=== PATIENT | male | born 1940 | race Caucasian/White ===

== ENCOUNTER 2017-04-02 12:19 | Emergency (ER) | payer MEDICARE ==
--- NOTE | 2017-04-02 12:52 | ED Physician Documentation ---
PD HPI CHEST PAIN - Stated complaint Stated Complaint: IRREGULAR HB - Chief complaint Chief Complaint: Cardiac - History obtained from History obtained from: Patient - History of Present Illness Timing - onset: Today Timing - onset during: Sleep Timing - duration: Hours (5) Pain level max: 2 Pain level now: 2 Quality: Pressure, Tightness, Other (L upper chest) Location: Left chest Radiation: Other (non-radiating) Improved by: Nothing Worsened by: Other (nothing) Associated symptoms: Shortness of air, Feeling faint / dizzy, Palpitations. No : Vomiting, General Weakness Similar symptoms before: Diagnosis (atrial fibrillation) Recently seen: Not recently seen - Additional information Additional information: states had similar episode 2 years ago, seen by cardiology in the past. Review of Systems Ten Systems: 10 systems reviewed and negative Constitutional: denies: Fever, Chills Ears: denies: Ear pain Nose: denies: Rhinorrhea / runny nose, Congestion Respiratory: denies: Cough GI: denies: Abdominal Pain, Nausea, Vomiting, Diarrhea Skin: denies: Rash Musculoskeletal: denies: Neck pain, Back pain Neurologic: reports: Generalized weakness. denies: Focal weakness, Numbness, Headache PD PAST MEDICAL HISTORY - Past Medical History Past Medical History: Yes Cardiovascular: Atrial fibrillation - Present Medications Home Medications: Ambulatory Orders Medication Instructions Recorded Confirmed Aspirin 04/02/17 - Allergies Allergies/Adverse Reactions: Allergies Allergy/AdvReac Type Severity Reaction Status Date / Time Unable to Assess Allergy Verified 04/02/17 12:29 - Social History Does the pt smoke?: No Smoking Status: Never smoker Does the pt drink ETOH?: Yes - Immunizations Immunizations are current?: Yes PD ED PE NORMAL - Vitals Vital signs reviewed: Yes - General General: Alert and oriented X 3, No acute distress - HEENT HEENT: PERRL, Moist mucous membranes - Neck Neck: Supple, no meningeal sign, No JVD, No bruit - Cardiac Cardiac: RRR, Strong equal pulses - Respiratory Respiratory: No respiratory distress, Clear bilaterally - Abdomen Abdomen: Soft, Non tender - Derm Derm: Warm and dry, No rash - Extremities Extremities: No calf tenderness / cord - Neuro Neuro: Alert and oriented X 3 - Psych Psych: Normal mood, Normal affect Results - Vitals Vitals: Vital Signs - 24 hr 06/23/17 06/23/17 06/23/17 12:19 12:35 12:45 Temperature 36.1 C L Heart Rate 85 53 L 50 L Respiratory 16 Rate Blood Pressure 130/87 H 123/76 114/78 Blood Pressure [Right] O2 Saturation 98 04/02/17 04/02/17 04/02/17 13:14 13:18 14:00 Temperature Heart Rate 50 L 48 L Respiratory 16 16 Rate Blood Pressure 110/71 107/64 Blood Pressure 107/72 [Right] O2 Saturation 100 100 04/02/17 15:07 Temperature Heart Rate 47 L Respiratory 16 Rate Blood Pressure 103/65 Blood Pressure [Right] O2 Saturation 98 Oxygen O2 Source Room air - EKG (time done) 1232 Rate: Rate (enter#) (104) Rhythm: Atrial fibrillation Vale: Normal QRS: Normal Ischemia: Non specific changes Compare to prior EKG: Old EKG unavailable 1257 Rate: Rate (enter#) (54) Rhythm: Sinus bradycardia Vale: Normal Intervals: Normal SC QRS: Normal Ischemia: Non specific changes Computer interpretation: Agree with computer - Labs Labs: Laboratory Tests 04/02/17 04/02/17 04/02/17 12:35 12:35 12:35 WBC 5.8 RBC 4.96 Hgb 15.5 Hct 44.4 MCV 89.7 MCH 31.2 H MCHC 34.8 RDW 13.3 Plt Count 161 MPV 9.1 Neut # 3.6 Lymph # 1.3 L [place] # 0.6 Eos # 0.2 Baso # 0.1 Absolute Nucleated RBC 0.00 Nucleated RBCs 0.1 Sodium 140 Potassium 4.0 Chloride 103 Carbon Dioxide 29 Anion Gap 8.0 BUN 15 Creatinine 0.9 Estimated GFR (MDRD) 82 L Glucose 101 H Calcium 9.9 Total Bilirubin 0.9 AST 26 ALT 23 Alkaline Phosphatase 63 Troponin I 0.04 Total Protein 7.6 Albumin 4.2 Globulin 3.4 Albumin/Globulin Ratio 1.2 Lipase 27 04/02/17 14:37 WBC RBC Hgb Hct MCV MCH MCHC RDW Plt Count MPV Neut # Lymph # [place] # Eos # Baso # Absolute Nucleated RBC Nucleated RBCs Sodium Potassium Chloride Carbon Dioxide Anion Gap BUN Creatinine Estimated GFR (MDRD) Glucose Calcium Total Bilirubin AST ALT Alkaline Phosphatase Troponin I 0.04 Total Protein Albumin Globulin Albumin/Globulin Ratio Lipase - Rads (name of study) cxr Radiology: Prelim report reviewed, EMP read contemporaneously, See rad report ( No acute cardiopulmonary process. ) PD MEDICAL DECISION MAKING - ED course Complexity details: reviewed results, re-evaluated patient, considered differential, d/w patient, d/w family ED course: Patient is a 77-year-old male with paroxysmal atrial fibrillation. Spontaneously converted in the emergency department. Negative troponin 2. No acute findings on chest x-ray. Patient is well-appearing, nontoxic. Afebrile. No evidence of myocardial infarction. He feels normal now. We will have him follow-up with his doctor for further evaluation and care. Patient counseled regarding signs and symptoms for which I believe and urgent re-evaluation would be necessary. Patient with good understanding of and agreement to plan and is comfortable going home at this time This document was made in part using voice recognition software. While efforts are made to proofread this document, sound alike and grammatical errors may occur. Departure - Departure Disposition: 01 Home, Self Care Clinical Impression: Atrial fibrillation Qualifiers: Atrial fibrillation type: paroxysmal Qualified Code(s): I48.0 - Paroxysmal atrial fibrillation Condition: Good Instructions: ED Afib Follow-Up: Provider,Other [Primary Care Provider] - Within 1 week Comments: Return if you worsen. Your laboratory tests are normal today. Discharge Date/Time: 04/02/17 15:13
[2017-04-02 12:53] LABS: BASOPHILS # (AUTO) 0.1 10^3/uL (0.0-0.1); EOSINOPHILS # (AUTO) 0.2 10^3/uL (0.0-0.7); EOSINOPHILS % (AUTO) 3.3 %; HCT - HEMATOCRIT 44.4 % (42.0-52.0); HGB - HEMOGLOBIN 15.5 g/dL (14.0-18.0); LYMPHOCYTES # (AUTO) 1.3 10^3/uL (1.5-3.5); LYMPHOCYTES % (AUTO) 22.5 %; MEAN CORPUSCULAR HEMOGLOBIN 31.2 pg (27.0-31.0); MEAN CORPUSCULAR HGB CONC 34.8 g/dL (32.0-36.0); MEAN CORPUSCULAR VOLUME 89.7 fL (80.0-94.0); MEAN PLATELET VOLUME 9.1 fL (7.4-11.4); MONOCYTES # (AUTO) 0.6 10^3/uL (0.0-1.0); MONOCYTES % (AUTO) 10.9 %; NEUTROPHILS # (AUTO) 3.6 10^3/uL (1.5-6.6); NEUTROPHILS % (AUTO) 62.3 %; NUCLEATED RED BLOOD CELLS AUTO 0.1 /100WBC; RED BLOOD COUNT 4.96 10^6/uL (4.70-6.10); RED CELL DISTRIBUTION WIDTH 13.3 % (12.0-15.0); UNCORRECTED WHITE BLOOD COUNT 5.8 x10^3/uL; WHITE BLOOD COUNT 5.8 x10^3/uL (4.8-10.8)
[2017-04-02 13:06] LABS: ALBUMIN/GLOBULIN RATIO 1.2 (1.0-2.2); BILIRUBIN,TOTAL 0.9 mg/dL (0.2-1.0); CALCIUM 9.9 mg/dL (8.5-10.3); CREATININE 0.9 mg/dL (0.6-1.2); TOTAL PROTEIN 7.6 g/dL (6.7-8.2)
--- NOTE | 2017-04-02 13:58 | XRAY Preliminary Report ---
Exam: XR Chest 1 View IMPRESSION: 1. No acute cardiopulmonary process. [facility] SITE ID: [id number]
--- NOTE | 2017-04-02 14:01 | XRAY Report ---
EXAM: CHEST RADIOGRAPHY EXAM DATE: 04/02/2017 01:45 PM. CLINICAL HISTORY: Chest pain. COMPARISON: None. TECHNIQUE: 1 view. FINDINGS: The heart size appears within normal limits, accentuated by portable AP technique. No pulmonary conso lidation or edema. Suture anchors in the left humeral head. IMPRESSION: 1. No acute cardiopulmonary process. [facility] Referring Provider Line: [phone] SITE ID: [id number]
[2017-04-02 15:07] VITALS: BP 103/65
== END 2017-04-02 15:13 | disposition home or self-care (01) ==
LOC: ED 12:19
DX: I48.0 Paroxysmal atrial fibrillation (principal); Z79.82 Long term (current) use of aspirin
CPT/HCPCS: 36415; 71010; 80053; 83690; 84484; 85025; 93005; 99284